=== PATIENT | female | born 1970 | race Caucasian/White ===

== ENCOUNTER 2018-12-16 08:45 | Day surgery (SDC) | payer OTHER ==
[~2018-12-16] VITALS: Ht 167.6 cm; Wt 99.2 kg
[~2018-12-16 08:45] MED LIST: LEVSOD100 PO; LEVSOD137 PO; LORA.5; PANT40 PO; Zofran8 MG PO
--- NOTE | 2018-12-16 10:49 | NUR ---
12/16/18 1049 Farida Bang DISCHARGE TEACHING COMPLETED WITH PT. TOLERATING PO FLUIDS WITHOUT DIFFICULTY. PT DID COMPLAIN OF "CRAMPING" AT THE END OF PROCEDURE BUT BY TIME OF DISCHARGE STATED IT HAD ALMOST COMPLETELY RESOLVED. PT ENCOURAGED TO WALK TO HELP WITH CRAMPING. ADVISED TO HYDRATE WELL AND AVOID ALCOHOL FOR THE NEXT 24 HOURS. DISCHARGE INSTRUCTIONS SENT HOME WITH PT.
== END 2018-12-16 10:40 | disposition home or self-care (01) ==
LOC: ORSCSDS 08:45
PROVIDERS: Surgery
PROC: 0DBN8ZX Excision of Sigmoid Colon, Via Natural or Artificial Opening Endoscopic, Diagnostic (ICD-10-PCS; principal; 2018-12-16 10:00)
PROC: 0DBM8ZX Excision of Descending Colon, Via Natural or Artificial Opening Endoscopic, Diagnostic (ICD-10-PCS; principal; 2018-12-16 10:00)
PROC: 0DBP8ZX Excision of Rectum, Via Natural or Artificial Opening Endoscopic, Diagnostic (ICD-10-PCS; principal; 2018-12-16 10:00)
DX: Z12.11 Encounter for screening for malignant neoplasm of colon (principal); K63.5 Polyp of colon; K62.1 Rectal polyp; K64.8 Other hemorrhoids; E03.9 Hypothyroidism, unspecified; Z87.891 Personal history of nicotine dependence; Z79.899 Other long term (current) drug therapy
CPT/HCPCS: 88305; J2704; J7120

== ENCOUNTER 2021-09-11 11:37 | Inpatient (IN) | payer OTHER ==
[~2021-09-11] VITALS: Ht 170.2 cm; Wt 87.0 kg
[2021-09-11 12:34] LABS: Hematocrit 30.6 % (33.0-51.0); Hemoglobin 10.7 g/dL (11.5-16.0); Mean Corpuscular HGB 33.1 pg (26.0-34.0); Mean Corpuscular Volume 95 fL (80-100); NRBC ABSOLUTE 0.02 K/mm3 (0.00-0.02); NRBC Auto 0.1 /100 WBC (0.0-0.2); RDW Coefficient Variation 14.9 % (11.7-14.2); RDW Standard Deviation 52.3 fL (35.1-46.3); Red Blood Cell Count 3.23 M/mm3 (3.80-5.20); White Blood Cell Count 25.96 K/mm3 (4.00-11.30)
[2021-09-11 12:52] LABS: BAND PERCENT MAN 10 % (0-8); BASOPHILS PERCENT MAN 0 % (0-2); EOSINOPHILS PERCENT MAN 0 % (0-6); LYMPHOCYTES ABSOLUTE MAN 1.03 K/mm3 (0.84-5.20); LYMPHOCYTES PERCENT MAN 4 % (21-46); METAMYELOCYTE ABSOLUTE MAN 0.25 K/mm3 (0.00-0.00); METAMYELOCYTE PERCENT MAN 1 % (0-0); MONOCYTES ABSOLUTE MAN 0.51 K/mm3 (0.16-1.47); MONOCYTES PERCENT MAN 2 % (4-13); NEUTROPHILS ABSOLUTE MAN 24.14 K/mm3 (1.96-9.15); SEG NEUTROPHILS PERCENT MAN 83 % (41-73); TOTAL CELLS COUNTED 100
[2021-09-11 12:54] LABS: Mean Platelet Volume 10.8 fL (9.1-12.4); Platelet Count 75 K/mm3 (150-400)
[2021-09-11 12:55] LABS: Source, Urine Clean Catch
[2021-09-11 12:58] LABS: Appearance, Urine Clear (Clear); Bilirubin, Urine Neg (Neg); Blood, Urine 4+ (Neg); Color, Urine Yellow (P-Yellow); Glucose Qualitative, Urine Neg (Neg); Ketones, Urine Neg (Neg); Leukocyte Esterase, Urine Neg (Neg); Nitrite, Urine Neg (Neg); Protein, Urine 2+ (Neg); Urobilinogen, Urine 1+ (Normal)
[2021-09-11 13:02] LABS: Alanine Aminotransfer (ALT/SGP 88 U/L (12-78); Albumin, Blood 1.7 g/dL (3.4-5.0); Albumin/Globulin Ratio 0.3 (0.8-1.8); Alk Phos 210 U/L (50-136); Anion Gap 7 mmol/L (6-16); Aspartate Aminotrans (AST/SGOT 75 U/L (12-37); Blood Urea Nitrogen 14 mg/dL (8-24); Bun/Creatinine Ratio 21.6 (12.0-20.0); CO2, Blood 30 mmol/L (21-32); Calcium, Blood 8.8 mg/dL (8.5-10.1); Chloride, Blood 94 mmol/L (98-108); Creatinine, Blood 0.65 mg/dL (0.40-1.00); Glomerular Filtration Rate >60 (60-); Glucose, Blood 130 mg/dL (70-99); Potassium, Blood 3.7 mmol/L (3.5-5.5); Sodium, Blood 131 mmol/L (136-145); Total Protein, Blood 6.7 g/dL (6.4-8.2)
[2021-09-11] MEDS ORDERED: HYDROCODONE-AC1 EA17 PO (13:04)
[2021-09-11] MEDS ORDERED: ONDA8 PO (13:04)
[2021-09-11] MEDS ORDERED: SYNTHROID150 MC1 PO (13:05)
[2021-09-11 13:13] LABS: Bacteria Few /hpf; Squamous Epithelial Cells Few /hpf (Few); White Blood Cells, Urine 0-2 /hpf (0-5)
--- NOTE | 2021-09-11 17:03 | NUR ---
[facility] RESTARTED AT 1700, 19UNITS PER KG PER CARDIOLOGY DR. RUBI. PENDING COBRA TRANSFER.
--- NOTE | 2021-09-11 18:00 | NUR ---
SHIFT SUMMARY; ADMIT FROM ED, TRANSFER TO BED FROM ER [facility] WITH STANDBY ASSIST. 8L OXIM[address]ER IN PLACE WITH SATS MAINTAINING AT 92. A/A/OX4, SPOUSE AT BEDSIDE, VSS, PLEASANT AND COOPERATIVE WITH CARE. L/S CLEAR T/O, ABX INFUSING FROM ED. WILL CONTINUE TO MONITOR AND TREAT UNTIL CHANGE OF SHIFT.
[2021-09-11 18:15] LABS: Adenovirus Not Detected (NOT DETECT); Bordetella pertussis Not Detected (NOT DETECT); Chlamydophila pneumoniae Not Detected (NOT DETECT); Coronavirus 229E Not Detected (NOT DETECT); Coronavirus HKU1 Not Detected (NOT DETECT); Coronavirus NL63 Not Detected (NOT DETECT); Coronavirus OC43 Not Detected (NOT DETECT); Human Metapneumovirus Not Detected (NOT DETECT); Human Rhinovirus/Enterovirus Not Detected (NOT DETECT); Influenza A/2009-H1 Not Detected (NOT DETECT); Influenza A/H1 Not Detected (NOT DETECT); Influenza A/H3 Not Detected (NOT DETECT); Influenza B Not Detected (NOT DETECT); Mycoplasma pneumoniae Not Detected (NOT DETECT); Parainfluenza Virus 1 Not Detected (NOT DETECT); Parainfluenza Virus 2 Not Detected (NOT DETECT); Parainfluenza Virus 3 Not Detected (NOT DETECT); Parainfluenza Virus 4 Not Detected (NOT DETECT); Respiratory Syncytial Virus Not Detected (NOT DETECT); SARS-Cov-2 (COVID-19), BioFire Detected (NOT DETECT)
[2021-09-12 05:02] LABS: Hematocrit 29.3 % (33.0-51.0); Hemoglobin 9.9 g/dL (11.5-16.0); Mean Corpuscular HGB 32.7 pg (26.0-34.0); Mean Corpuscular HGB Conc 33.8 g/dL (31.5-36.5); Mean Corpuscular Volume 97 fL (80-100); Mean Platelet Volume 11.5 fL (9.1-12.4); Platelet Count 102 K/mm3 (150-400); RDW Coefficient Variation 15.2 % (11.7-14.2); Red Blood Cell Count 3.03 M/mm3 (3.80-5.20); White Blood Cell Count 29.09 K/mm3 (4.00-11.30)
[2021-09-12 05:37] LABS: Anion Gap 6 mmol/L (6-16); Blood Urea Nitrogen 15 mg/dL (8-24); Bun/Creatinine Ratio 29.1 (12.0-20.0); CO2, Blood 31 mmol/L (21-32); Calcium, Blood 8.8 mg/dL (8.5-10.1); Chloride, Blood 100 mmol/L (98-108); Creatinine, Blood 0.52 mg/dL (0.40-1.00); Glomerular Filtration Rate >60 (60-); Glucose, Blood 166 mg/dL (70-99); Sodium, Blood 137 mmol/L (136-145)
--- NOTE | 2021-09-12 07:15 | NUR ---
End of shift summary Overnight without issues, 8L NC with sats in the low 90s, no pain, IV was pulled out at 0615, and power glide is to be placed soon, will continue to monitor
[2021-09-12 16:23] LABS: Vancomycin, Trough 9.8 ug/mL (5.0-10.0)
--- NOTE | 2021-09-12 16:48 | NUR ---
SHIFT SUMMARY: PT HAS BEEN PLEASANT AND UPBEAT T/O SHIFT. UP TO USE BSC T/O SHIFT. WAS ABLE TO TOLERATE A SHOWER WHILE OXYGEN REMAINED ON. REPORTS COUGH HAS DECREASED BUT SPUTUM WAS ABLE TO STILL BE SENT OFF. FEELS WORK OF BREATHING IS IMPROVING. O2 FLOW REMAINS AT 12 L T/O SHIFT DUE TO HIGHEST O2 READING OF 95%.
--- NOTE | 2021-09-13 03:40 | NUR ---
Pt had coughing episode and became hypoxic on the 12L. Increased oxygen to 15L and pt sustaining 92-94%. Pt is anxious and having a hard time sleeping, reached out to hospitalist for anxiety meds. Pt is up in chair resting more comfortably at this time.
--- NOTE | 2021-09-13 03:58 | NUR ---
PHYSICIAN NOTIFIED PT ANXIOUS. PHYSICIAN NOTIFIED, ORDERS FOR 0.5 MG OF ATIVAN ONCE.
--- NOTE | 2021-09-13 04:47 | NUR ---
[employer] Fo[employer] Kiss Maker Note: Pt is A&O, anxious. Pt had trouble sleeping prn melatonin and one time dose of ativan given. VSS on 12-15L, titrated up to 15L after a coughing episode and has remained 92-93% at 15L. IV abx given per orders. Tylenol given for headache x1. Productive cough.
[2021-09-13 05:01] LABS: Hematocrit 27.6 % (33.0-51.0); Hemoglobin 9.4 g/dL (11.5-16.0); LYMPHOCYTES PERCENT AUTO 4 % (21-46); Mean Corpuscular HGB 32.8 pg (26.0-34.0); Mean Corpuscular HGB Conc 34.1 g/dL (31.5-36.5); Mean Corpuscular Volume 96 fL (80-100); Mean Platelet Volume 11.6 fL (9.1-12.4); NEUTROPHILS PERCENT AUTO 88 % (41-73); Platelet Count 195 K/mm3 (150-400); RDW Standard Deviation 52.6 fL (35.1-46.3); Red Blood Cell Count 2.87 M/mm3 (3.80-5.20); White Blood Cell Count 27.63 K/mm3 (4.00-11.30)
[2021-09-13 05:02] LABS: BASOPHILS ABSOLUTE AUTO 0.08 K/mm3 (0.00-0.23); BASOPHILS PERCENT AUTO 0 % (0-2); EOSINOPHILS PERCENT AUTO 0 % (0-6); IMMATURE GRAN PERCENT AUTO 5 % (0-1); LYMPHOCYTES ABSOLUTE AUTO 1.16 K/mm3 (0.84-5.20); MONOCYTES PERCENT AUTO 2 % (4-13); NEUTROPHILS ABSOLUTE AUTO 24.29 K/mm3 (1.96-9.15)
[2021-09-13 05:32] LABS: Alanine Aminotransfer (ALT/SGP 186 U/L (12-78); Albumin, Blood 1.6 g/dL (3.4-5.0); Albumin/Globulin Ratio 0.3 (0.8-1.8); Alk Phos 185 U/L (50-136); Anion Gap 8 mmol/L (6-16); Aspartate Aminotrans (AST/SGOT 154 U/L (12-37); Bilirubin, Total 0.9 mg/dL (0.1-1.0); Blood Urea Nitrogen 17 mg/dL (8-24); Bun/Creatinine Ratio 27.7 (12.0-20.0); CO2, Blood 31 mmol/L (21-32); Calcium, Blood 8.5 mg/dL (8.5-10.1); Chloride, Blood 98 mmol/L (98-108); Creatinine, Blood 0.61 mg/dL (0.40-1.00); Globulin, Blood 4.7 g/dL (2.2-4.0); Glomerular Filtration Rate >60 (60-); Glucose, Blood 125 mg/dL (70-99); Potassium, Blood 4.1 mmol/L (3.5-5.5); Sodium, Blood 137 mmol/L (136-145); Total Protein, Blood 6.3 g/dL (6.4-8.2)
--- NOTE | 2021-09-13 17:14 | NUR ---
SHIFT SUMMARY PT HAS BEEN RESTING IN BEDSIDE CHAIR. PT AMBULATED TO RESTROOM ON MULTIPLE OCCASIONS WITH NO INCIDENT. PT HAD A STEADY GAIT WITH ONLY MILD WEAKNESS. PT WAS EXPERIENCING CONTINUED SHORTNESS OF BREATH ON 15L NC THIS AM. THIS RN REQUESTED THE ASSISTANCE OF RT TO TRANSITION PT TO AIRVO. PT WAS PLACED ON AIRVO AT 40L/50% FIO2 AND HAS MAINTAINED SPO2 >90%. DURING AMBULATION TO THE RESTROOM SPO2 FELL TO 87% AND QUICKLY RECOVERED TO >90% ONCE SEATED. PT HAD A TEMPERATURE OF 100.6 THIS AM THAT RESOLVED. NO CHANGE IN PT CONDITION.
[2021-09-14 03:58] LABS: Hematocrit 30.6 % (33.0-51.0); Hemoglobin 10.4 g/dL (11.5-16.0); Mean Corpuscular HGB 33.1 pg (26.0-34.0); Mean Corpuscular Volume 98 fL (80-100); Mean Platelet Volume 10.9 fL (9.1-12.4); Platelet Count 245 K/mm3 (150-400); RDW Coefficient Variation 15.1 % (11.7-14.2); RDW Standard Deviation 53.7 fL (35.1-46.3); Red Blood Cell Count 3.14 M/mm3 (3.80-5.20); White Blood Cell Count 21.25 K/mm3 (4.00-11.30)
[2021-09-14 04:17] LABS: Alanine Aminotransfer (ALT/SGP 161 U/L (12-78); Albumin, Blood 1.5 g/dL (3.4-5.0); Albumin/Globulin Ratio 0.3 (0.8-1.8); Alk Phos 161 U/L (50-136); Anion Gap 4 mmol/L (6-16); Aspartate Aminotrans (AST/SGOT 81 U/L (12-37); Bilirubin, Total 0.6 mg/dL (0.1-1.0); Blood Urea Nitrogen 16 mg/dL (8-24); Bun/Creatinine Ratio 29.7 (12.0-20.0); CO2, Blood 33 mmol/L (21-32); Calcium, Blood 8.5 mg/dL (8.5-10.1); Chloride, Blood 100 mmol/L (98-108); Creatinine, Blood 0.54 mg/dL (0.40-1.00); Globulin, Blood 4.8 g/dL (2.2-4.0); Glomerular Filtration Rate >60 (60-); Glucose, Blood 158 mg/dL (70-99); Sodium, Blood 137 mmol/L (136-145); Total Protein, Blood 6.3 g/dL (6.4-8.2)
[2021-09-14 04:19] LABS: BAND PERCENT MAN 6 % (0-8); BASOPHILS PERCENT MAN 0 % (0-2); EOSINOPHILS PERCENT MAN 0 % (0-6); LYMPHOCYTES ABSOLUTE MAN 1.06 K/mm3 (0.84-5.20); LYMPHOCYTES PERCENT MAN 5 % (21-46); METAMYELOCYTE ABSOLUTE MAN 0.21 K/mm3 (0.00-0.00); METAMYELOCYTE PERCENT MAN 1 % (0-0); MONOCYTES ABSOLUTE MAN 1.06 K/mm3 (0.16-1.47); MONOCYTES PERCENT MAN 5 % (4-13); NEUTROPHILS ABSOLUTE MAN 18.91 K/mm3 (1.96-9.15); SEG NEUTROPHILS PERCENT MAN 83 % (41-73); TOTAL CELLS COUNTED 100
--- NOTE | 2021-09-14 05:54 | NUR ---
SHIFT SUMMARY: PATIENT MAINTAINED O2 SATS >90% ON 40L/50% AIRVO T/O SHIFT. PATIENT DENIES CHEST PAIN, SOB, OR OTHER DISCOMFORT. USES BSC W/ASSISTANCE DUE TO CORDS/LINES. PATIENT REPORTS SLEEPING WELL IN THE RECLINER DESPITE PERIODIC INTERRUPTIONS FROM STAFF (VITALS, MEDICATIONS, ETC). PATIENT DENIED ANXIETY DURING THIS SHIFT AND WAS NOT GIVEN PRN ANXIETY MEDS. CALL LIGHT IN REACH AND CALLS APPROPRIATELY. WILL CONTINUE TO MONITOR AND REPORT TO ONCOMING RN.
--- NOTE | 2021-09-14 17:35 | NUR ---
SHIFT SUMMARY PT HAS BEEN RESTING IN ROOM. PT STATED THAT THEY FELT MORE TIRED THAN USUAL, BUT LESS TIRED THAN YESTERDAY. PT GOT UP TO RESTROOM AND COMMODE BY STAND-BY ASSIST. PT WAS IN GOOD SPIRITS WITH A HOPEFUL AND POSITIVE OUTLOOK ON THEIR TREATMENT AND DISEASE PROCESS. OXYGEN REQUIREMENTS DECRESED SLIGHTLY, AIRVO 40L/45%. PT DID NOT DESAT WITH ACTIVITY. VSS, NO CHANGES IN CONDITION.
--- NOTE | 2021-09-14 22:05 | NUR ---
CARE ASSUMPTION: PATIENT IN RECLINER TALKING TO SPOUSE ON PHONE. PATIENT STATES SHE "HAD A GOOD DAY TODAY." USED BSC AND STATED SHE WOULD LIKE TO TRY SLEEPING IN THE BED TONIGHT. VSS ON 40L/45% AIRVO. RESTING IN BED NOW WITH CALL LIGHT IN REACH.
[2021-09-15 04:58] LABS: Hematocrit 29.1 % (33.0-51.0); Hemoglobin 9.7 g/dL (11.5-16.0); Mean Corpuscular HGB 32.8 pg (26.0-34.0); Mean Corpuscular HGB Conc 33.3 g/dL (31.5-36.5); Mean Corpuscular Volume 98 fL (80-100); Mean Platelet Volume 10.6 fL (9.1-12.4); NRBC ABSOLUTE 0.02 K/mm3 (0.00-0.02); NRBC Auto 0.1 /100 WBC (0.0-0.2); Platelet Count 420 K/mm3 (150-400); RDW Coefficient Variation 14.7 % (11.7-14.2); RDW Standard Deviation 53.1 fL (35.1-46.3); Red Blood Cell Count 2.96 M/mm3 (3.80-5.20); White Blood Cell Count 19.32 K/mm3 (4.00-11.30)
[2021-09-15 05:19] LABS: Alanine Aminotransfer (ALT/SGP 219 U/L (12-78); Albumin, Blood 1.6 g/dL (3.4-5.0); Albumin/Globulin Ratio 0.3 (0.8-1.8); Alk Phos 143 U/L (50-136); Anion Gap 6 mmol/L (6-16); Aspartate Aminotrans (AST/SGOT 104 U/L (12-37); Bilirubin, Total 0.5 mg/dL (0.1-1.0); Blood Urea Nitrogen 19 mg/dL (8-24); Bun/Creatinine Ratio 30.3 (12.0-20.0); CO2, Blood 31 mmol/L (21-32); Calcium, Blood 8.4 mg/dL (8.5-10.1); Chloride, Blood 102 mmol/L (98-108); Creatinine, Blood 0.63 mg/dL (0.40-1.00); Globulin, Blood 4.6 g/dL (2.2-4.0); Glomerular Filtration Rate >60 (60-); Glucose, Blood 93 mg/dL (70-99); Potassium, Blood 3.9 mmol/L (3.5-5.5); Sodium, Blood 139 mmol/L (136-145); Total Protein, Blood 6.2 g/dL (6.4-8.2)
[2021-09-15 05:29] LABS: BAND PERCENT MAN 5 % (0-8); BASOPHILS PERCENT MAN 0 % (0-2); EOSINOPHILS PERCENT MAN 0 % (0-6); LYMPHOCYTES ABSOLUTE MAN 2.51 K/mm3 (0.84-5.20); LYMPHOCYTES PERCENT MAN 13 % (21-46); MONOCYTES ABSOLUTE MAN 0.38 K/mm3 (0.16-1.47); MONOCYTES PERCENT MAN 2 % (4-13); MYELOCYTE ABSOLUTE MAN 0.38 K/mm3 (0.00-0.00); MYELOCYTE PERCENT MAN 2 % (0-0); NEUTROPHILS ABSOLUTE MAN 16.03 K/mm3 (1.96-9.15); SEG NEUTROPHILS PERCENT MAN 78 % (41-73); TOTAL CELLS COUNTED 100
--- NOTE | 2021-09-15 06:08 | NUR ---
SHIFT SUMMARY: PATIENT MAINTAINED O2 SATS >90% T/O SHIFT ON 40L/45% AIRVO. PATIENT SLEPT WELL DURING THE NIGHT BUT AWOKE AGITATED WITH "ALL THE CORDS" AND DISCONNECTED NC AND PULSE OXIMETER WHILE RN WAS IN ROOM. THIS RN DISCONNECTED IV LINES TO AID IN PATIENT'S ANXIETY NO MEDICATIONS WERE INFUSING. PATIENT AMBULATED TO TOILET WITH GOOD O2 TOLERANCE. RECEIVED PRN BREATHING TX AROUND 0500 FOR COUGHING/TIGHTNESS. CALL LIGHT IN PLACE. WILL CONTINUE TO MONITOR AND REPORT TO ONCOMING RN.
--- NOTE | 2021-09-15 17:43 | NUR ---
SHIFT SUMMARY PT A/O X4 AND COOPERATIVE OF CARE. VSS THROUGHOUT SHIFT WITH 02 SATS > 95%. PT ON AIRVO 40L/45% AT BEGINNING OF SHIFT, TITRATED TO 35L/35% WITH SATS REMAINING IN THE 90'S. NO REPRT OF DYSPNEA/SOB THROUGHOUT SHIFT. NO REPORT OF CHEST PAIN/PRESSURE THROUGHUT SHIFT. PT UP TO BEDSIDE COMMODE DURING SHIFT, INDEPENDENT IN ROOM, TOLERATED WELL. PT RECEVED ZOSYN PER EMAR. PT CALLED APROPIATELY DURING SHIFT.
--- NOTE | 2021-09-15 23:02 | NUR ---
CARE ASSUMPTION: PATIENT WATCHING TV WITH SPOUSE AT BEDSIDE. PATIENT REPORTS SHE IS CONTINUING TO FEEL BETTER. RT CAME IN THE ROOM AND SAID CLINICALLY SHE DOESN'T NEED THE AIRVO ANYMORE, BUT THE PATIENT CANNOT TOLERATE THE HI-FLOW NC SO THE PLAN IS TO TITRATE HER OFF THE AIRVO SO SHE CAN TRANSITIONED DIRECTLY TO THE REGULAR NC IF NEEDED. PATIENT REPORTS SHE HISTORICALLY HAS SENSITIVE NARES AND DRY SINUSES.
--- NOTE | 2021-09-16 17:40 | NUR ---
SHIFT SUMMARY PT HAS REMAINED ALERT AND ORIENTED X 4. SHE IS PLEASANT AND COOPERATIVE WITH CARE. SPO2 HAS MAINTAINED >95% AND PT IS NOW ON 4L VIA HIGH FLOW NC. VITAL SIGNS STABLE. SHE HAS CONTINUED TO DENY CHEST PAIN/PRESSURE, DENIED OTHER PAIN, DENIED FEELINGS OF NAUSEA/VOMITTING. SHE IS INDEPENDENT IN ROOM BUT IF INFUSION IS GOING SHE NEEDS ASSISTANCE TO MANAGE LINES FOR BATHROOM USE. SHE HAS BEEN IN RECLINER CHAIR FOR MAJORITY OF SHIFT, WAS AT BEDSIDE THIS AFTERNOON. RIGHT UPPER ARM POWERGLIDE IS CURRENTLY INFUSING ZOSYN/NS PER EMAR ORDERS. NO OTHER ACUTE CHANGES NOTED. WILL PASS ON INFO TO ROOM 361 NURSE/CONTINUE TO MONITOR UNTIL TRANSFER. CALL LIGHT IN REACH.
--- NOTE | 2021-09-17 04:31 | NUR ---
SHIFT SUMMARY 51 YR F TRANSFERED FROM PCU ON 09/16/21. FULL CODE. ORIGINALLY ADMITTED FOR LEONORA PNEUMONIA AND SEPSIS. PT STATES SHE FEELS MUCH BETTER AND IS PRETTY MUCH BACK TO HER BASELINE. SHE IS HOPING TO BE DISCHARGED TODAY. SHE STATES THAT SHE HAS BEEN SLEEPING VERY WELL AND IS NO LONGER HAVING ANY TROUBLE BRETHING OR ANY PAIN. SHE IS INDEPENDANT IN THE ROOM AND FULLY COOPERATIVE IN HER CARE.
[2021-09-17 04:55] LABS: Hematocrit 30.6 % (33.0-51.0); Mean Corpuscular HGB 32.5 pg (26.0-34.0); Mean Corpuscular HGB Conc 32.7 g/dL (31.5-36.5); Mean Corpuscular Volume 99 fL (80-100); Mean Platelet Volume 9.5 fL (9.1-12.4); NRBC ABSOLUTE 0.03 K/mm3 (0.00-0.02); NRBC Auto 0.3 /100 WBC (0.0-0.2); Platelet Count 545 K/mm3 (150-400); RDW Coefficient Variation 14.6 % (11.7-14.2); Red Blood Cell Count 3.08 M/mm3 (3.80-5.20); White Blood Cell Count 10.55 K/mm3 (4.00-11.30)
[2021-09-17 05:44] LABS: Alanine Aminotransfer (ALT/SGP 161 U/L (12-78); Albumin, Blood 1.6 g/dL (3.4-5.0); Albumin/Globulin Ratio 0.3 (0.8-1.8); Alk Phos 106 U/L (50-136); Anion Gap 19 mmol/L (6-16); Aspartate Aminotrans (AST/SGOT 52 U/L (12-37); Bilirubin, Total 0.3 mg/dL (0.1-1.0); Blood Urea Nitrogen 15 mg/dL (8-24); Bun/Creatinine Ratio 30.1 (12.0-20.0); CO2, Blood 26 mmol/L (21-32); Calcium, Blood 7.5 mg/dL (8.5-10.1); Chloride, Blood 105 mmol/L (98-108); Globulin, Blood 5.4 g/dL (2.2-4.0); Glomerular Filtration Rate >60 (60-); Glucose, Blood 86 mg/dL (70-99); Potassium, Blood 3.6 mmol/L (3.5-5.5)
[2021-09-17 05:46] LABS: BAND PERCENT MAN 7 % (0-8); BASOPHILS PERCENT MAN 0 % (0-2); EOSINOPHILS PERCENT MAN 0 % (0-6); LYMPHOCYTES ABSOLUTE MAN 1.37 K/mm3 (0.84-5.20); LYMPHOCYTES PERCENT MAN 13 % (21-46); METAMYELOCYTE ABSOLUTE MAN 0.42 K/mm3 (0.00-0.00); METAMYELOCYTE PERCENT MAN 4 % (0-0); MONOCYTES ABSOLUTE MAN 0.94 K/mm3 (0.16-1.47); MONOCYTES PERCENT MAN 9 % (4-13); MYELOCYTE ABSOLUTE MAN 0.31 K/mm3 (0.00-0.00); MYELOCYTE PERCENT MAN 3 % (0-0); NEUTROPHILS ABSOLUTE MAN 7.49 K/mm3 (1.96-9.15); SEG NEUTROPHILS PERCENT MAN 64 % (41-73); TOTAL CELLS COUNTED 100
[2021-09-17 06:28] LABS: Sodium, Blood 150 mmol/L (136-145)
[2021-09-17] MEDS ORDERED: Acetaminophen325 M1 PO (11:56)
[2021-09-17] MEDS ORDERED: DECADRON6 M1 PO (11:58)
[2021-09-17] MEDS ORDERED: VISBIOME 112.51 EACH PO (12:00)
[2021-09-17] MEDS ORDERED: AMOCLA500 PO (12:01)
--- NOTE | 2021-09-17 12:17 | NUR ---
PT DISCHARGED WITH INSTRUCTIONS- WHEELCHAIR OUT TO PRIVATE CAR, TO DRIVE HOME. PT ON ROOM AIR, NO DYSPNEA WITH ACTIVITY. AMBULATING INDEPENDANT IN ROOM. TOLERATING FOOD AND FLUIDS. RX TO [facility]. SENT HOME WITH ALL BELONGINGS.
== END 2021-09-17 12:16 | disposition home or self-care (01) | DRG 871 ==
LOC: ER 11:37 → PCU 14:11 → MEDS 09-16 18:31
PROVIDERS: Emergency Medicine; Internal Medicine; ADMIT Internal Medicine
DX: A41.89 Other specified sepsis (principal); U07.1 COVID-19; J12.82 Pneumonia due to coronavirus disease 2019; J96.01 Acute respiratory failure with hypoxia; J15.9 Unspecified bacterial pneumonia; E87.1 Hypo-osmolality and hyponatremia; R65.20 Severe sepsis without septic shock; R94.5 Abnormal results of liver function studies; E03.9 Hypothyroidism, unspecified; D64.9 Anemia, unspecified; F41.9 Anxiety disorder, unspecified; F10.10 Alcohol abuse, uncomplicated; I10 Essential (primary) hypertension; D72.829 Elevated white blood cell count, unspecified; Z98.51 Tubal ligation status; Z88.5 Allergy status to narcotic agent; Z87.891 Personal history of nicotine dependence; Z88.8 Allergy status to other drugs, medicaments and biological substances; Z79.899 Other long term (current) drug therapy; Z79.2 Long term (current) use of antibiotics; Z79.51 Long term (current) use of inhaled steroids
CPT/HCPCS: 0202U; 36415; 71045; 76705; 80048; 80053; 80202; 81001; 83605; 84145; 85025; 85027; 87040; 87070; 87205; 93005; 93010; 94640; 94664; 94760; 94761; 94762; 96365; 99285-25; A9270; C1751; J0696; J1650; J1940; J2060; J2405; J2543; J3370; J7040; J7050; J7060; J7120; J7512

== ENCOUNTER → 2025-03-14 | Outpatient (CLI) | payer OTHER ==
[~2025-03-14] MED LIST changes: +AMOCLA500 PO; +Acetaminophen325 M1 PO; +DECADRON6 M1 PO; +HYDROCODONE-AC1 EA17 PO; +ONDA8 PO; +SYNTHROID150 MC1 PO; +VISBIOME 112.51 EACH PO
[2025-03-14 09:49] LABS: BASOPHILS ABSOLUTE AUTO 0.02 K/mm3 (0.00-0.23); BASOPHILS PERCENT AUTO 0 % (0-2); EOSINOPHILS ABSOLUTE AUTO 0.03 K/mm3 (0.00-0.68); EOSINOPHILS PERCENT AUTO 0 % (0-6); Hematocrit 44.3 % (33.0-51.0); Hemoglobin 15.5 g/dL (11.5-16.0); IMMATURE GRAN ABSOLUTE AUTO 0.07 K/mm3 (0.00-0.10); IMMATURE GRAN PERCENT AUTO 1 % (0-1); LYMPHOCYTES ABSOLUTE AUTO 0.70 K/mm3 (0.84-5.20); LYMPHOCYTES PERCENT AUTO 5 % (21-46); MONOCYTES ABSOLUTE AUTO 0.55 K/mm3 (0.16-1.47); MONOCYTES PERCENT AUTO 4 % (4-13); Mean Corpuscular HGB Conc 35.0 g/dL (31.5-36.5); Mean Corpuscular Volume 96 fL (80-100); NEUTROPHILS ABSOLUTE AUTO 13.15 K/mm3 (1.96-9.15); NEUTROPHILS PERCENT AUTO 91 % (41-73); NRBC ABSOLUTE 0.00 K/mm3 (0.00-0.02); NRBC Auto 0.0 /100 WBC (0.0-0.2); Platelet Count 274 K/mm3 (150-400); RDW Coefficient Variation 12.4 % (11.7-14.2); RDW Standard Deviation 43.6 fL (35.1-46.3)
[2025-03-14 10:11] LABS: Alanine Aminotransfer (ALT/SGP 31.0 U/L (12-78); Albumin, Blood 4.2 g/dL (3.4-5.0); Albumin/Globulin Ratio 1.0 (0.8-1.8); Anion Gap 13.0 mmol/L (3-11); Aspartate Aminotrans (AST/SGOT 16.0 U/L (12-37); Bilirubin, Total 1.0 mg/dL (0.1-1.0); Blood Urea Nitrogen 9.0 mg/dL (8-24); CO2, Blood 28.0 mmol/L (21-32); Calcium, Blood 9.8 mg/dL (8.5-10.1); Chloride, Blood 101.0 mmol/L (98-108); Creatinine, Blood 0.6 mg/dL (0.40-1.00); Globulin, Blood 4.0 g/dL (2.2-4.0); Glucose, Blood 156.0 mg/dL (70-99); Potassium, Blood 2.8 mmol/L (3.5-5.5); Sodium, Blood 139.0 mmol/L (136-145); Total Protein, Blood 8.2 g/dL (6.4-8.2)
== END ==
LOC: LAB SHORT 09:38 → LAB 09:38
PROVIDERS: Nurse Practitioner Family
DX: R10.9 Unspecified abdominal pain (principal); R11.2 Nausea with vomiting, unspecified
CPT/HCPCS: 80053; 85025

== ENCOUNTER 2025-03-18 13:12 | Emergency (ER) | payer OTHER ==
[~2025-03-18] VITALS: Ht 172.7 cm; Wt 94.8 kg
[2025-03-18] MEDS ORDERED: Ondansetron HCl 2 MG / ML 2ML Vial IV PRN (13:25)
[2025-03-18 13:45] LABS: BASOPHILS ABSOLUTE AUTO 0.04 K/mm3 (0.00-0.23); BASOPHILS PERCENT AUTO 0 % (0-2); EOSINOPHILS ABSOLUTE AUTO 0.01 K/mm3 (0.00-0.68); EOSINOPHILS PERCENT AUTO 0 % (0-6); Hematocrit 44.2 % (33.0-51.0); Hemoglobin 15.8 g/dL (11.5-16.0); IMMATURE GRAN ABSOLUTE AUTO 0.04 K/mm3 (0.00-0.10); IMMATURE GRAN PERCENT AUTO 0 % (0-1); LYMPHOCYTES ABSOLUTE AUTO 0.90 K/mm3 (0.84-5.20); LYMPHOCYTES PERCENT AUTO 8 % (21-46); MONOCYTES ABSOLUTE AUTO 0.40 K/mm3 (0.16-1.47); MONOCYTES PERCENT AUTO 3 % (4-13); Mean Corpuscular HGB Conc 35.7 g/dL (31.5-36.5); Mean Corpuscular Volume 95 fL (80-100); NEUTROPHILS ABSOLUTE AUTO 10.28 K/mm3 (1.96-9.15); NEUTROPHILS PERCENT AUTO 88 % (41-73); NRBC ABSOLUTE 0.00 K/mm3 (0.00-0.02); NRBC Auto 0.0 /100 WBC (0.0-0.2); Platelet Count 281 K/mm3 (150-400); RDW Coefficient Variation 11.8 % (11.7-14.2); RDW Standard Deviation 40.9 fL (35.1-46.3)
[2025-03-18 14:29] LABS: Alanine Aminotransfer (ALT/SGP 28.0 U/L (12-78); Albumin, Blood 3.4 g/dL (3.4-5.0); Albumin/Globulin Ratio 0.9 (0.8-1.8); Anion Gap 9.0 mmol/L (3-11); Aspartate Aminotrans (AST/SGOT 20.0 U/L (12-37); Bilirubin, Total 0.5 mg/dL (0.1-1.0); Blood Urea Nitrogen 12.0 mg/dL (8-24); CO2, Blood 24.0 mmol/L (21-32); Calcium, Blood 9.2 mg/dL (8.5-10.1); Chloride, Blood 104.0 mmol/L (98-108); Creatinine, Blood 0.6 mg/dL (0.40-1.00); Globulin, Blood 3.9 g/dL (2.2-4.0); Glucose, Blood 129.0 mg/dL (70-99); Potassium, Blood 3.4 mmol/L (3.5-5.5); Sodium, Blood 134.0 mmol/L (136-145); Total Protein, Blood 7.3 g/dL (6.4-8.2)
[2025-03-18] MEDS ORDERED: Lidocaine 2% Viscous Soln 15 ML UDC PO ONE (16:30)
[2025-03-18] MEDS ORDERED: Prochlorperazine Edisylate 10 mg Vial IV ONE (17:20)
[2025-03-18 17:47] LABS: Source, Urine Clean Catch
[2025-03-18 17:51] LABS: Bilirubin, Urine Neg (Neg); Color, Urine Yellow (P-Yellow); Glucose Qualitative, Urine Neg (Neg); Ketones, Urine 1+ (Neg); Leukocyte Esterase, Urine Neg (Neg); Protein, Urine 1+ (Neg); Specific Gravity, Urine 1.015 (1.003-1.022); Urobilinogen, Urine NORM (Normal)
[2025-03-18 17:58] LABS: White Blood Cells, Urine 0-2 /hpf (0-5)
[2025-03-18] MEDS ORDERED: DiphenhydrAMINE HCl 50 MG/ML 1ML Vial ONE (18:09)
[2025-03-18] MEDS ORDERED: DiphenhydrAMINE HCl 50 MG/ML 1ML Vial IV ONE (18:15)
[2025-03-18] MEDS ORDERED: COMPAZINE10 MG PO (18:27)
[2025-03-18 18:37] VITALS: BP 141/90
== END 2025-03-18 18:40 | disposition home or self-care (01) ==
LOC: ER 13:12
PROVIDERS: Physician Assistant
DX: K52.9 Noninfective gastroenteritis and colitis, unspecified (principal); E03.9 Hypothyroidism, unspecified; Z87.891 Personal history of nicotine dependence
CPT/HCPCS: 74177; 80053; 81001; 83690; 85025; 93005; 93010; 96374; 96375; 99284-25; A9270; J0780; J1200; J2405; Q9967